=== PATIENT | male | born 1960 | race Caucasian/White ===

== ENCOUNTER 2016-12-05 08:35 | Emergency (ER) | payer BC ==
[2016-12-05 08:45] VITALS: BP 124/78
[2016-12-05] MEDS ORDERED: KETOROLAC TROMETHAMINE 60 MG/2 ML VIAL IM ONE ×2 (08:53→08:56)
[2016-12-05] MEDS ORDERED: KETOROLAC TROMETHAMINE 30 MG/ML VIAL IM ONE (08:53)
--- NOTE | 2016-12-05 09:05 | ERNOTE ---
Back Pain ER HPI Presenting Symptoms: hx chronic back pain Source: patient Exam Limitations: no limitations Immunizations: IMMUNIZATION HX Immunizations Up to Date Yes Allergies/Adverse Reactions: Allergies No Known Allergies Allergy (Verified 12/05/16 08:45) Home Medications: HOME MEDICATIONS Atorvastatin Calcium [Lipitor] 10 mg PO DAILY 05/21/14 [Last Taken Unknown] Psyllium Husk (with Sugar) [Metamucil] 1 each PO DAILY 05/21/14 [Last Taken Unknown] Ranitidine HCl [Zantac] 300 mg PO HS 05/21/14 [Last Taken Unknown] traMADol HCL [Ultram] 50 mg PO QID #30 05/21/14 [Last Taken Unknown] Baclofen 10 mg PO QID #60 tablet 12/05/16 [Last Taken Unknown] Docusate Sodium [Colace] 100 mg PO DAILY 12/05/16 [Last Taken Unknown] traMADol HCL [Ultram] 50 mg PO QID PRN #20 tablet 12/05/16 [Last Taken Unknown] Narrative: Pt presents with an exacerbation of chronic back pain. Pt has had MRI's in the past and epidurals, but the area had flared up again and he could not wait until to see his FP. Timing: Reports: constant Quality/Severity: Reports: severe Location of pain: Reports: lower back Activities at Onset: Reports: none Recent Injury?: Reports: no Modifying Factors - (Improves): Reports: nothing Modifying Factors - (Worsens): Reports: upright position Prior Treament: Reports: similar symptoms before Review of Systems - Review of Systems Constitutional: Present: See HPI EYE: Present: no symptoms reported ENT: Present: no symptoms reported Respiratory: Present: no symptoms reported Cardiology: Present: no symptoms reported Gastrointestinal/Abdominal: Present: no symptoms reported Genitourinary: Present: no symptoms reported Musculoskeletal: Present: See HPI, muscle pain, muscle stiffness Skin: Present: no symptoms reported Neurological: Present: no symptoms reported Endocrine: Present: no symptoms reported Hematologic/Lymphatic: Present: no symptoms reported Psych: Present: no symptoms reported - Patient's Past Medical History Patient History - Medical: Chronic Pain Patient History - Cardiac/Respiratory: Hyperlipidemia Patient History - Cancer: No Hx of Cancer Patient History - Surgical Procedures: Orthopedic - Social History Smoking Status: Never smoker - Immunizations Immunizations Up to Date: Yes Physical Exam - Physical Exam General Appearance: Present: wd/wn, alert, moderate distress Eye Exam: Normal inspection: bilateral, PERRL: bilateral Ears, Nose, Throat: Present: normal ENT inspection, H, normal pharynx Neck: Present: normal inspection, nontender Respiratory: Present: no respiratory distress, normal breath sounds, no accessory muscle use, chest nontender, lungs clear Cardiovascular/Chest: Present: regular rate, rhythm, no murmur, normal peripheral pulses Gastrointestinal/Abdominal: Present: normal bowel sounds, nontender, nondistended, soft, no organomegaly Rectal Exam: Present: deferred Back Exam: Present: decreased range of motion, muscle spasm Extremity Exam: Present: normal inspection, non-tender, no edema, normal range of motion Neurological Exam: Present: alert, oriented, normal mood/affect Skin Exam: Present: normal color, warm/dry Lymphatic Exam: Present: no adenopathy ED Progress - Vital Signs Patient's Vital Signs:: I have reviewed the patient's vital signs. Vital Signs: Vital Signs 12/05/16 08:42 Pulse Rate 75 Respiratory 14 Rate Blood Pressure 124/78 O2 Sat by Pulse 100 Oximetry - Progress/Reassessment Chief Complaint: Back Pain Progress:: Unchanged Plan - Plan Plan: Patient states that he is on baclofen previously and feels that it might have been helping. He was also on tramadol that appeared to be helping his back pain as well. He was given an injection of Toradol here in the emergency department and will give him several days off from work and he has an appointment to see his family physician Dr. Sims on . Departure Clinical Impression: Back sprain or strain - Departure Disposition: Home self-care Condition: Good Instructions: Chronic Pain, Back Pain, Adult Referrals: Matt Sims DO [Primary Care Provider] - Prescriptions: Baclofen 10 mg PO QID #60 tablet traMADol HCL [Ultram] 50 mg PO QID PRN #20 tablet PRN Reason: Moderate Pain
== END 2016-12-05 09:25 | disposition home or self-care (01) ==
LOC: ER 08:35
DX: S33.5XXA Sprain of ligaments of lumbar spine, initial encounter (principal); E78.5 Hyperlipidemia, unspecified

== ENCOUNTER 2016-12-09 11:16 | Day surgery (SDC) | payer BC ==
--- NOTE | 2016-12-09 14:24 | OR ---
Anesthesia Pre Procedure Eval Pre Procedure Evaluation: Last Vital Signs Temp 37 C 12/09/16 12:36 Pulse 73 12/09/16 12:36 Resp 18 12/09/16 12:36 BP 121/74 12/09/16 12:36 Pulse Ox 99 12/09/16 12:36 PRE PROCEDURE EVALUATION:: DATE: 12/09/2016 TIME: 1415 INDICATIONS: Radicular low back pain. Bulging disc L4 5 and L5-S1. PAST MEDICAL HISTORY: Previous epidural steroid injection approximately 4 years ago. EXAM: Lungs clear and equal. Heart rate regular. Patient complains of low back pain radiating into his right hip and into right leg. He has no left- sided involvement. ASSESSMENT OF MEDICAL STATUS: Procedure risks and benefits were explained to and accepted by the patient. No contraindication to epidural steroid injection. PLANNED PROCEDURE : Fluoroscopy-guided epidural steroid injection at L4 5 Home Medications: HOME MEDICATIONS Atorvastatin Calcium [Lipitor] 10 mg PO HS 05/21/14 [Last Taken 12/08/16] Psyllium Husk (with Sugar) [Metamucil] 1 tbs PO DAILY 05/21/14 [Last Taken 12/08] Baclofen 10 mg PO QID #60 tablet 12/05/16 [Last Taken 12/08/16] Diclofenac Sodium [Voltaren] 1 applic TP BID 12/09/16 [Last Taken 12/08/16] HYDROcodone/ACETAMINOPHEN [Lortab 5-325 mg Tablet] 1 each PO Q6H PRN 12/09/16 [ Last Taken 12/08/16] Prednisone 50 mg PO DAILY 12/09/16 [Last Taken 12/09/16] Ranitidine HCl [Zantac] 150 mg PO DAILY 12/09/16 [Last Taken 12/08/16]
--- NOTE | 2016-12-09 14:51 | OR ---
Anesthesia Procedure Note - Anesthesia Procedure Note Narrative: Vital Signs - Last Taken Temp 37 C 12/09/16 12:36 Pulse 73 12/09/16 12:36 Resp 18 12/09/16 12:36 BP 121/74 12/09/16 12:36 Pulse Ox 99 12/09/16 12:36 12/09/16 14:47 ANESTHESIA PROCEDURE NOTE Date of Procedure: 12/09/2016 Time of procedure: 1430. Performed by: Rajesh Chisholm CRNA Gis Analyst: None. Preprocedure diagnosis: Radicular low back pain. Bulging disc L4 5 and L5-S1. Post procedure diagnosis: Same. Procedure: Epidural Steroid Injection at L4 5. Indications: Radicular low back pain. Findings: See below. Details of the procedure: The patient was brought back to operating room #3. The patient was then placed in the prone position. Back was prepped with DuraPrep. Patient was then draped in sterile fashion. Lidocaine 1% was infiltrated to the skin and subcutaneous tissues at the level of the L4 5 interspace. The epidural space was identified using a 20-gauge Tuohy needle with [id number] technique and fluoroscopic guidance. A total of 3 mL of Isovue 200 contrast dye was injected in first the AP and lateral positions to confirm needle placement Dexamethasone 10 mg + 5 mL of 1% preservative-free lidocaine was administered to the epidural space after negative aspiration for blood and CSF. The Tuohy needle was removed intact. A Band-Aid was applied to the patient's back. The patient was then placed in a supine position for 5 minutes before returning to the ambulatory surgical unit. Total fluoroscopy time was 30 seconds. Total dose 12.24 m/gy. EBL: Minimal. Fluids: N/A. Specimen: N/A. Post procedure condition: The patient tolerated the procedure well. No complications were noted. Thank you for this consultation. Rajesh Chisholm CRNA
[2016-12-09 15:22] VITALS: BP 136/77
== END 2016-12-09 11:17 | disposition home or self-care (01) ==
LOC: AMB 11:16
PROVIDERS: ATTEND Family Medicine
PROC: 3E0S3BZ Introduction of Anesthetic Agent into Epidural Space, Percutaneous Approach (ICD-10-PCS; 2016-12-09)
PROC: 3E0S33Z Introduction of Anti-inflammatory into Epidural Space, Percutaneous Approach (ICD-10-PCS; principal; 2016-12-09 14:20)
DX: M51.27 Other intervertebral disc displacement, lumbosacral region (principal)